=== PATIENT | male | born 1940 | race Caucasian/White ===

== ENCOUNTER → 2016-11-01 | Outpatient (CLI) | payer MEDICARE ==
[~2016-11-01] MED LIST: ENAL10TA7 PO; HYDR-2952 PO; OMEP20TA PO
[2016-11-01 10:15] LABS: HEMATOCRIT 39.5 % (39.0-51.0); MEAN CELL VOLUME 86.5 FL (80.0-100.0); MEAN CORPUSCULAR HEMOGLOBIN 28.6 PG (27.0-34.0); MEAN CORPUSCULAR HGB CONC 33.1 % (32.0-36.0); PLATELET COUNT 216 TH/MM3 (150-450); RED BLOOD COUNT 4.57 MIL/MM3 (4.50-5.90); RED CELL DISTRIBUTION WIDTH 14.5 % (11.6-17.2); REVIEW FLAG FINAL; WHITE BLOOD COUNT 5.4 TH/MM3 (4.0-11.0)
[2016-11-01 10:55] LABS: ALKALINE PHOSPHATASE 63 U/L (45-117); ALT (GPT) 25 U/L (12-78); ANION GAP 6 MEQ/L (5-15); AST (GOT) 13 U/L (15-37); BICARBONATE 29.9 MEQ/L (21.0-32.0); BLOOD UREA NITROGEN 14 MG/DL (7-18); CHLORIDE 107 MEQ/L (98-107); GLOMERULAR FILTRATION RATE 60 ML/MIN (>89); GLUCOSE,FASTING 92 MG/DL (74-99); HDL CHOLESTEROL 46.9 MG/DL (40.0-60.0); LDL CHOLESTEROL 121 MG/DL (0-99); LDL CHOLESTEROL DIRECT 112 MG/DL (0-99); POTASSIUM 4.7 MEQ/L (3.5-5.1); SODIUM (NA) 143 MEQ/L (136-145); TOTAL BILIRUBIN ADULT 0.4 MG/DL (0.2-1.0)
== END ==
LOC: PLAB 06:48
PROVIDERS: ATTEND Internal Medicine
DX: I10 Essential (primary) hypertension (principal); E78.5 Hyperlipidemia, unspecified
CPT/HCPCS: 36415; 80053; 80061; 83721; 85027

== ENCOUNTER → 2017-05-08 | Outpatient (CLI) | payer MEDICARE ==
[2017-05-08 09:30] LABS: HEMATOCRIT 38.5 % (39.0-51.0); MEAN CELL VOLUME 86.8 FL (80.0-100.0); MEAN CORPUSCULAR HGB CONC 33.4 % (32.0-36.0); PLATELET COUNT 318 TH/MM3 (150-450); RED BLOOD COUNT 4.43 MIL/MM3 (4.50-5.90); RED CELL DISTRIBUTION WIDTH 15.3 % (11.6-17.2); REVIEW FLAG FINAL; WHITE BLOOD COUNT 5.5 TH/MM3 (4.0-11.0)
[2017-05-08 09:43] LABS: ANION GAP 5 MEQ/L (5-15); AST (GOT) 21 U/L (15-37); BICARBONATE 28.3 MEQ/L (21.0-32.0); BLOOD UREA NITROGEN 15 MG/DL (7-18); CHLORIDE 108 MEQ/L (98-107); GLOMERULAR FILTRATION RATE 61 ML/MIN (>89); GLUCOSE,FASTING 98 MG/DL (74-99); POTASSIUM 4.4 MEQ/L (3.5-5.1); SODIUM (NA) 141 MEQ/L (136-145)
[2017-05-08 09:49] LABS: ALKALINE PHOSPHATASE 60 U/L (45-117); ALT (GPT) 31 U/L (12-78); HDL CHOLESTEROL 52.6 MG/DL (40.0-60.0); LDL CHOLESTEROL 115 MG/DL (0-99); LDL CHOLESTEROL DIRECT 122 MG/DL (0-99); TOTAL BILIRUBIN ADULT 0.5 MG/DL (0.2-1.0)
== END ==
LOC: PLAB 06:51
PROVIDERS: ATTEND Internal Medicine
DX: I10 Essential (primary) hypertension (principal); E78.5 Hyperlipidemia, unspecified; Z12.5 Encounter for screening for malignant neoplasm of prostate
CPT/HCPCS: 36415; 80053; 80061; 83721; 84153; 85027

== ENCOUNTER → 2017-11-08 | Outpatient (CLI) | payer MEDICARE ==
[2017-11-08 10:30] LABS: HEMATOCRIT 38.7 % (39.0-51.0); HEMOGLOBIN 12.8 GM/DL (13.0-17.0); MEAN CELL VOLUME 85.7 FL (80.0-100.0); MEAN CORPUSCULAR HEMOGLOBIN 28.3 PG (27.0-34.0); MEAN CORPUSCULAR HGB CONC 33.1 % (32.0-36.0); MEAN PLATELET VOLUME 7.2 FL (7.0-11.0); PLATELET COUNT 242 TH/MM3 (150-450); RED BLOOD COUNT 4.51 MIL/MM3 (4.50-5.90); RED CELL DISTRIBUTION WIDTH 15.5 % (11.6-17.2); WHITE BLOOD COUNT 4.3 TH/MM3 (4.0-11.0)
[2017-11-08 10:34] LABS: BILIRUBIN, URINE NEG (NEG); BLOOD, URINE NEG (NEG); GLUCOSE,URINE NEG (NEG); KETONE, URINE NEG (NEG); MUCUS URINE FEW /lpf (OCC); NITRITE,URINE NEG (NEG); PH, URINE 6.5 (5.0-8.5); URINE COLOR YELLOW (YELLW/STRAW); URINE LEUKOCYTE ESTERASE NEG (NEG)
[2017-11-08 10:41] LABS: ALBUMIN 3.5 GM/DL (3.4-5.0); AST (GOT) 17 U/L (15-37); BICARBONATE 28.1 MEQ/L (21.0-32.0); BLOOD UREA NITROGEN 18 MG/DL (7-18); CALCIUM 8.9 MG/DL (8.5-10.1); CHLORIDE 109 MEQ/L (98-107); CHOLESTEROL 185 MG/DL (120-200); CREATININE 1.35 MG/DL (0.60-1.30); GLOMERULAR FILTRATION RATE 51 ML/MIN (>89); GLUCOSE,FASTING 92 MG/DL (74-99); SODIUM (NA) 143 MEQ/L (136-145); TRIGLYCERIDES 90 MG/DL (42-150)
[2017-11-08 10:45] LABS: ALKALINE PHOSPHATASE 59 U/L (45-117); ALT (GPT) 28 U/L (12-78); CHOLESTEROL/ HDL RATIO 3.71 RATIO; HDL CHOLESTEROL 49.8 MG/DL (40.0-60.0); LDL CHOLESTEROL 117 MG/DL (0-99); LDL CHOLESTEROL DIRECT 111 MG/DL (0-99); TOTAL BILIRUBIN ADULT 0.3 MG/DL (0.2-1.0); TOTAL PROTEIN 6.6 GM/DL (6.4-8.2)
== END ==
LOC: PLAB 06:40
PROVIDERS: ATTEND Internal Medicine
DX: I10 Essential (primary) hypertension (principal)
CPT/HCPCS: 36415; 80053; 80061; 81001; 83721; 85027